=== PATIENT | female | born 1975 | race Caucasian/White ===

== ENCOUNTER 2019-11-17 17:25 | Emergency (ER) | payer BC ==
--- NOTE | 2019-11-17 18:23 | EDM.PDOC ---
ED HPI GENERAL MEDICAL PROBLEM - General Chief Complaint: Abdominal Pain Stated Complaint: ABD PAIN/LOWER RT Time Seen by Provider: 11/17/19 18:23 Source of Information: Reports: Patient History Limitations: Reports: No Limitations - History of Present Illness INITIAL COMMENTS - FREE TEXT/NARRATIVE: pt arrived with increased pain in the rt lower abdoman. She does still have her appendix. Onset: Other (pain did increase significantlt today. ) Duration: Hour(s): Location: Reports: Abdomen Associated Symptoms: Reports: Fever/Chills, Loss of Appetite - Related Data Allergies Allergy/AdvReac Type Severity Reaction Status Date / Time No Known Allergies Allergy Verified 11/17/19 17:54 Home Meds: Home Meds Omeprazole 1 tab PO TID 11/17/19 [History] Sucralfate 1 tab PO QID 11/17/19 [History] Past Medical History - Past Surgical History GI Surgical History: Reports: Bariatric Procedure Female Surgical History: Reports: Section Social & Family History - Tobacco Use Smoking Status *Q: Never Smoker ED ROS GENERAL - Review of Systems Review Of Systems: See Below Constitutional: Reports: Fever, Weakness, Decreased Appetite HEENT: Reports: No Symptoms Respiratory: Reports: No Symptoms Cardiovascular: Reports: No Symptoms Endocrine: Reports: No Symptoms GI/Abdominal: Reports: Abdominal Pain, Other (pain has moved from the upper abdoman to the rt lower abdoman. ) : Reports: Other (pain does extend into the flank and down to the rt lower abdoman. ) Musculoskeletal: Reports: No Symptoms Skin: Reports: No Symptoms Neurological: Reports: No Symptoms ED EXAM, GI/ABD - Physical Exam Exam: See Below Text/Narrative:: pt arrived with increased pain in the rt lower abdoman and rt flank area. Exam Limited By: No Limitations General Appearance: Moderate Distress Ears: Normal TMs Nose: Normal Inspection Throat/Mouth: Normal Inspection Head: Atraumatic Neck: Normal Inspection Respiratory/Chest: No Respiratory Distress Cardiovascular: Regular Rate, Rhythm GI/Abdominal Exam: Other (pt is tender in the rt flank and in the rt lower abdoman. ) (Female) Exam: Deferred Rectal (Female) Exam: Deferred Back Exam: Normal Inspection Extremities: Normal Inspection Neurological: Alert, Oriented, Normal Cognition Course - Vital Signs Last Recorded V/S: Last Vital Signs Temp 37.4 C 11/17/19 18:04 Pulse 92 11/17/19 18:04 Resp 16 11/17/19 18:04 BP 135/69 11/17/19 18:04 Pulse Ox 98 11/17/19 18:04 - Orders/Labs/Meds Labs: Laboratory Tests 11/17/19 11/17/19 11/17/19 Range/Units 17:50 18:22 18:22 WBC 12.3 H (4.5-11.0) K/uL RBC 4.62 (3.30-5.50) M/uL Hgb 13.8 (12.0-15.0) g/dL Hct 42.0 (36.0-48.0) % MCV 91 (80-98) fL MCH 30 (27-31) pg MCHC 33 (32-36) % Plt Count 244 (150-400) K/uL Neut % (Auto) 82 H (36-66) % Lymph % (Auto) 10 L (24-44) % Eddy % (Auto) 8 H (2-6) % Eos % (Auto) 0 L (2-4) % Baso % (Auto) 0 (0-1) % Sodium (140-148) mmol/L Potassium (3.6-5.2) mmol/L Chloride (100-108) mmol/L Carbon Dioxide (21-32) mmol/L Anion Gap (5.0-14.0) mmol/L BUN (7-18) mg/dL Creatinine (0.6-1.0) mg/dL Est Cr Clr Drug Dosing mL/min Estimated GFR (MDRD) (>60) Glucose (74-106) mg/dL Calcium (8.5-10.1) mg/dL Total Bilirubin (0.2-1.0) mg/dL AST (15-37) U/L ALT (12-78) U/L Alkaline Phosphatase (46-116) U/L C-Reactive Protein 8.88 H (0.0-0.3) mg/dL Total Protein (6.4-8.2) g/dL Albumin (3.4-5.0) g/dL Globulin (2.3-3.5) g/dL Albumin/Globulin Ratio (1.2-2.2) Amylase (25-115) U/L Lipase (73-393) U/L Urine Color Yellow (YELLOW) Urine Appearance Slightly cloudy A (CLEAR) Urine pH 6.0 (5.0-8.0) Ur Specific [place] 1.020 (1.008-1.030) Urine Protein 30 H (NEGATIVE) mg/dL Urine Glucose (UA) Negative (NEGATIVE) mg/dL Urine Ketones 80 H (NEGATIVE) mg/dL Urine Occult Blood Moderate H (NEGATIVE) Urine Nitrite Negative (NEGATIVE) Urine Bilirubin Small H (NEGATIVE) Urine Urobilinogen 1.0 (0.2-1.0) EU/dL Ur Leukocyte Esterase Small H (NEGATIVE) Urine RBC 5-10 H (0-5) Urine WBC 10-20 H (0-5) Ur Epithelial Cells Moderate Amorphous Sediment Not seen Urine Bacteria Many Urine Mucus Few 11/17/19 11/17/19 11/17/19 Range/Units 18:22 18:23 18:24 WBC (4.5-11.0) K/uL RBC (3.30-5.50) M/uL Hgb (12.0-15.0) g/dL Hct (36.0-48.0) % MCV (80-98) fL MCH (27-31) pg MCHC (32-36) % Plt Count (150-400) K/uL Neut % (Auto) (36-66) % Lymph % (Auto) (24-44) % Eddy % (Auto) (2-6) % Eos % (Auto) (2-4) % Baso % (Auto) (0-1) % Sodium 141 (140-148) mmol/L Potassium 4.0 (3.6-5.2) mmol/L Chloride 104 (100-108) mmol/L Carbon Dioxide 24 (21-32) mmol/L Anion Gap 12.6 (5.0-14.0) mmol/L BUN 7 (7-18) mg/dL Creatinine 0.9 (0.6-1.0) mg/dL Est Cr Clr Drug Dosing 86.26 mL/min Estimated GFR (MDRD) > 60 (>60) Glucose 94 (74-106) mg/dL Calcium 8.8 (8.5-10.1) mg/dL Total Bilirubin 0.8 (0.2-1.0) mg/dL AST 18 (15-37) U/L ALT 28 (12-78) U/L Alkaline Phosphatase 49 (46-116) U/L C-Reactive Protein (0.0-0.3) mg/dL Total Protein 7.3 (6.4-8.2) g/dL Albumin 3.5 (3.4-5.0) g/dL Globulin 3.8 H (2.3-3.5) g/dL Albumin/Globulin Ratio 0.9 L (1.2-2.2) Amylase 27 (25-115) U/L Lipase 74 (73-393) U/L Urine Color (YELLOW) Urine Appearance (CLEAR) Urine pH (5.0-8.0) Ur Specific [place] (1.008-1.030) Urine Protein (NEGATIVE) mg/dL Urine Glucose (UA) (NEGATIVE) mg/dL Urine Ketones (NEGATIVE) mg/dL Urine Occult Blood (NEGATIVE) Urine Nitrite (NEGATIVE) Urine Bilirubin (NEGATIVE) Urine Urobilinogen (0.2-1.0) EU/dL Ur Leukocyte Esterase (NEGATIVE) Urine RBC (0-5) Urine WBC (0-5) Ur Epithelial Cells Amorphous Sediment Urine Bacteria Urine Mucus Meds: Medications Discontinued Medications Generic Name Dose Route Start Last Admin Trade Name Freq PRN Reason Stop Dose Admin Sodium Chloride 1,000 mls @ 999 mls/hr 11/17/19 18:30 11/17/19 18:47 Normal Saline IV 999 mls/hr ASDIRECTED RICKY Administration Sodium Chloride 85 mls @ 3 mls/sec 11/17/19 19:15 11/17/19 19:36 Normal Saline IV 3 mls/sec ASDIRECTED RICKY Administration Ceftriaxone Sodium 1 gm/ 50 mls @ 100 mls/hr 11/17/19 22:11 11/17/19 22:28 Sodium Chloride IV 11/17/19 22:40 100 mls/hr ONETIME ONE Administration Iopamidol 150 ml 11/17/19 19:15 11/17/19 19:36 Isovue-300 (61%) IV 150 ml . DIRECTED RICKY Administration Sodium Chloride 10 ml 11/17/19 19:10 11/17/19 19:36 Saline Flush FLUSH 11/17/19 19:11 10 ml ONETIME ONE Administration - Re-Assessments/Exams Free Text/Narrative Re-Assessment/Exam: 11/21/19 08:04 pt had a cat scan of the abdoman which showed a thickened endometrium. She had a ablation mid Oct. A pelvic Us was done which did not show acute changes. Her urine appeared to be quite infected. Pt had a mild elevation in her wbc and her crp was high. I believe the high crp is related to the recent ablation. 11/21/19 08:06 Departure - Departure Time of Disposition: 22:13 Disposition: Home, Self-Care 01 Condition: Fair Clinical Impression: UTI (urinary tract infection) - Discharge Information Instructions: Urinary Tract Infection, Adult Referrals: Bernardo Sarkar MD [Primary Care Provider] - Forms: ED Department Discharge Care Plan Goals: push fluids, cipro 500mg bid, norco 5/325 q6h prn for pain #6, appt with Dr Sarkar tue or tue. Sepsis Event Note - Evaluation Sepsis Screening Result: No Definite Risk - Focused Exam Date Exam was Performed: 11/21/19 Time Exam was Performed: 07:50
[2019-11-17] MEDS ORDERED: Sodium Chloride 0.9% 1,000 ML IV SCH (18:30)
[2019-11-17] MEDS ORDERED: Sodium Chloride 0.9% 10 ML Syringe FLUSH ONE (19:10)
[2019-11-17] MEDS ORDERED: Iopamidol 612 MG/ML 150 ML Bottle IV SCH (19:15)
--- NOTE | 2019-11-17 19:58 | CRLCT ---
INDICATION: RT FLANK PAIN AND RT LOWER ABD PAIN 414 IMAGES 150 ML ISOVUE GIVEN PRIOR ABD XR SENT FROM 08-22-19 HISTORY: Right flank pain. Right lower quadrant abdominal pain. COMPARISON: Upper GI series, 08/22/2019. TECHNIQUE: CT of the abdomen and pelvis. Coronal/sagittal reconstruction images. 150 cc of Isovue-300 IV. FINDINGS: Lung bases: There is no pleural or pericardial effusion. The heart size is normal. There is no acute airspace disease. There is no basilar pneumothorax. Abdomen/pelvis: There is a lap band, which is stable in orientation when compared with 08/22/2019. The port and tubing appear continuous. The band is oriented from the 2 to 8 o`clock position. Non cirrhotic liver morphology. No perihepatic ascites. No radiopaque gallstones. There are a few tiny liver lesions, which appear benign. The largest is seen in segment 2, likely a cyst, measuring up to 9 mm. Spleen size is normal. No adrenal mass. There is no hydronephrosis. There are symmetric nephrograms. There is no solid renal mass or perinephric fluid collection. No urolith by CT. Urinary bladder is normal. There is a small amount of gas within the endometrial canal, seen best on image 113, series 2. No mass. Endometrial complex appears thickened, measuring up to 37 millimeters in maximum transverse dimension. Suggest correlation with recent pelvic exam. Urinary bladder is normal. There is no wall thickening within the small bowel or colon. There is no perienteric edema. There is no mucosal hyper enhancement. The appendix is well seen on image 95 of series 2. The appendix is also well demonstrated on image 40 of series 3. There is no adenopathy by size criteria in the pelvis, retroperitoneum, gastrohepatic ligament, small bowel mesentery. The bone windows demonstrate degenerative changes at the symphysis pubis. Sclerosis at the left SI joint. Degenerative changes at the endplates of the thoracolumbar spine. On sagittal reconstruction images, the vertebral body heights are maintained. There is sclerosis at the lumbosacral junction. IMPRESSION: 1. Normal caliber appendix. No adjacent inflammatory changes. 2. There are symmetric nephrograms. There is no solid renal mass. No perinephric fluid collection or hydronephrosis. 3. Lap band. The band is oriented from the 2 to 8 o`clock position, similar to the upper GI series from 08/22/2019. 4. Endometrial complex appears thickened. There is a single locule of gas about the lower uterine segment. Suggest correlation with the patient`s LMP and pelvic ultrasound. No adnexal mass. Dictated by Thomas Drew MD @ 11/17/2019 7:57:35 PM Please note that all CT scans at this facility use dose modulation, iterative reconstruction, and/or weight-based dosing when appropriate to reduce radiation dose to as low as reasonably achievable. Dictated by: Thomas Drew MD @ 11/17/2019 19:57:53 (Electronically Signed)
--- NOTE | 2019-11-17 22:10 | CRLUS ---
INDICATION: Follow up abnormal appearing endometrial complex on CT performed earlier today. The patient had a uterine ablation in mid-October. TECHNIQUE: Transabdominal and transvaginal pelvic ultrasound. COMPARISON: Correlation is made with an abdominal pelvic CT from the same date. FINDINGS: The uterus measures 9.5 x 4.6 x 6.6 cm. No myometrial mass identified. The endometrial stripe is heterogeneous and thickened measuring up to 10 mm. It is poorly delineated including poor delineation of the endometrial myometrial complex. This very likely related to the recent endometrial ablation. The right ovary measures 3.7 x 2.6 x 3.2 cm. The left ovary measures 2.0 x 1.4 x 2.1 cm. Blood flow is documented in the ovaries both arterial and venous. No free fluid in the cul-de-sac. IMPRESSION: 1. Ill defined endometrial stripe which is mildly thickened up to 10 mm. This is likely related to recent ablation. 2. No myometrial mass. 3. Cervical nabothian cysts. 4. Normal-appearing ovaries without torsion or mass. Dictated by Rancho Jean MD @ Nov 17 2019 10:08PM Signed by Dr. Rancho Jean @ Nov 17 2019 10:08PM
[2019-11-17] MEDS ORDERED: cefTRIAXone 1 GM in Sodium Chloride 0.9% 50 ML IV ONE (22:11)
--- NOTE | 2019-11-19 10:14 | CRLUS ---
Final Report: INDICATION: Follow up abnormal appearing endometrial complex on CT performed earlier today. The patient had a uterine ablation in mid-October. TECHNIQUE: Transabdominal and transvaginal pelvic ultrasound. COMPARISON: Correlation is made with an abdominal pelvic CT from the same date. FINDINGS: The uterus measures 9.5 x 4.6 x 6.6 cm. No myometrial mass identified. The endometrial stripe is heterogeneous and thickened measuring up to 10 mm. It is poorly delineated including poor delineation of the endometrial myometrial complex. This very likely related to the recent endometrial ablation. The right ovary measures 3.7 x 2.6 x 3.2 cm. The left ovary measures 2.0 x 1.4 x 2.1 cm. Blood flow is documented in the ovaries both arterial and venous. No free fluid in the cul-de-sac. IMPRESSION: 1. Ill defined endometrial stripe which is mildly thickened up to 10 mm. This is likely related to recent ablation. 2. No myometrial mass. 3. Cervical nabothian cysts. 4. Normal-appearing ovaries without torsion or mass. Dictated by Rancho Jean MD @ Nov 17 2019 10:08PM Signed by: Rancho Jean MD @11/17/2019 10:08:24 PM (Electronic Signature) MTDD
== END 2019-11-17 23:09 | disposition home or self-care (01) ==
LOC: JP.ED 17:25
DX: N39.0 Urinary tract infection, site not specified (principal)
CPT/HCPCS: 36415; 74177; 76830; 76857; 80053; 81001; 82150; 83690; 85025; 86140; 87086; 96361; 96365; 99284; J0696; J7030; J7050; Q9967

== ENCOUNTER 2022-02-18 08:57 | Day surgery (SDC) | payer BC ==
[~2022-02-18 08:57] MED LIST: Acetaminophen/HYDROcodone 325-5 MG Tab PO PRN; Benzocaine/Cetylpyridinium/Menthol Lozenge MUCMEM PRN; Bupivacaine 0.5% 50 ML MDV ONE; Docusate Sodium 100 MG Cap PO PRN; Lidocaine 1% with EPINEPHrine 1:100,000 50 ML MDV ONE; Ondansetron 4 MG/2 ML SDV IVPUSH PRN; Zolpidem 5 MG Tab PO PRN; fentaNYL 250 MCG/5 ML SDV ONE; hydrOXYzine HCL 100 MG/2 ML SDV IM PRN
[2022-02-18] MEDS ORDERED: Glycopyrrolate 0.2 MG/ML 5 ML MDV ONE (09:10)
[2022-02-18] MEDS ORDERED: Succinylcholine 200 MG/10 ML MDV ONE (09:10)
[2022-02-18] MEDS ORDERED: Dexamethasone 4 MG/ML SDV ONE (09:10)
[2022-02-18] MEDS ORDERED: Ondansetron 4 MG/2 ML SDV ONE (09:10)
[2022-02-18] MEDS ORDERED: Rocuronium 50 MG/5 ML Vial ONE (09:10)
[2022-02-18] MEDS ORDERED: Neostigmine Methylsulfate 1 MG/ML 5 ML Syringe ONE (09:10)
[2022-02-18] MEDS ORDERED: Propofol 200 MG/20 ML SDV ONE (09:10)
[2022-02-18] MEDS ORDERED: Sodium Chloride 0.9% 1,000 ML IV SCH (09:30)
[2022-02-18] MEDS ORDERED: Scopolamine 1.5 MG Transdermal Patch TOP ONE (09:50)
[2022-02-18] MEDS ORDERED: metroNIDAZOLE/Normal Saline 500 MG in Premix Bag 1 BAG IV ONE (10:00)
[2022-02-18] MEDS ORDERED: fentaNYL 100 MCG/2 ML SDV IVPUSH PRN ×3 (10:00)
[2022-02-18] MEDS ORDERED: ceFAZolin 2 GM in Premix Bag 1 BAG IV ONE (10:00)
[2022-02-18] MEDS ORDERED: fentaNYL 100 MCG/2 ML SDV ONE ×2 (10:42→11:21)
[2022-02-18] MEDS ORDERED: hydrALAZINE 20 MG/ML SDV ONE (11:04)
[2022-02-18] MEDS ORDERED: fentaNYL 50 MCG/ML SDV IVPUSH ONE (11:32)
[2022-02-18] MEDS ORDERED: hydrOXYzine HCL 100 MG/2 ML SDV IM ONE (11:32)
[2022-02-18] MEDS ORDERED: diphenhydrAMINE 50 MG/ML SDV ONE (11:39)
[2022-02-18] MEDS ORDERED: Albuterol/Ipratropium 3.0-0.5 MG/3 ML Neb Soln ONE (11:40)
[2022-02-18] MEDS ORDERED: diphenhydrAMINE 50 MG/ML SDV IVPUSH ONE (11:45)
[2022-02-18] MEDS ORDERED: Albuterol/Ipratropium 3.0-0.5 MG/3 ML Neb Soln INH ONE (11:45)
[2022-02-18] MEDS ORDERED: VERIFY SCOP PATCH TOP SCH (12:00)
== END 2022-02-18 16:04 | disposition home or self-care (01) ==
LOC: JP.SDS 08:57
PROVIDERS: ATTEND Surgery
DX: K81.1 Chronic cholecystitis (principal); K82.8 Other specified diseases of gallbladder; I10 Essential (primary) hypertension; Z01.812 Encounter for preprocedural laboratory examination; Z20.822 Contact with and (suspected) exposure to COVID-19
CPT/HCPCS: 36415; 47562; 80053; 81025; 85027; 87635; A9270; J0171; J0330; J0360; J0690; J1100; J1200; J2405; J2704; J2710; J2795; J3010; J3490; J7030; 88304; J7620; U0002

== ENCOUNTER 2023-01-27 07:50 | Day surgery (SDC) | payer BC ==
[~2023-01-27 07:50] MED LIST changes: -Acetaminophen/HYDROcodone 325-5 MG Tab PO PRN; -Benzocaine/Cetylpyridinium/Menthol Lozenge MUCMEM PRN; -Bupivacaine 0.5% 50 ML MDV ONE; -Docusate Sodium 100 MG Cap PO PRN; -Lidocaine 1% with EPINEPHrine 1:100,000 50 ML MDV ONE; +Midazolam 1 MG/ML 2 ML SDV ONE; -Ondansetron 4 MG/2 ML SDV IVPUSH PRN; +Propofol 200 MG/20 ML SDV ONE; -Zolpidem 5 MG Tab PO PRN; +fentaNYL 100 MCG/2 ML SDV ONE; -fentaNYL 250 MCG/5 ML SDV ONE; -hydrOXYzine HCL 100 MG/2 ML SDV IM PRN
[2023-01-27] MEDS ORDERED: Sodium Chloride 0.9% 1,000 ML IV SCH ×2 (08:15)
== END 2023-01-27 10:27 | disposition home or self-care (01) ==
LOC: JP.SDS 07:50
PROVIDERS: ATTEND Surgery
DX: Z12.11 Encounter for screening for malignant neoplasm of colon (principal); K21.9 Gastro-esophageal reflux disease without esophagitis; I10 Essential (primary) hypertension; Z80.0 Family history of malignant neoplasm of digestive organs
CPT/HCPCS: 45378; J2250; J2704; J3010; J7030